=== PATIENT | male | born 1955 | race Two or more races ===

== ENCOUNTER 2018-11-17 08:06 | Day surgery (SDC) | payer MEDICARE, OTHER ==
[2018-11-17] MEDS ORDERED: INSULIN REGULAR, HUMAN 100 UNIT/1 ML 3ML VIAL IVP (10:04)
[2018-11-17] MEDS ORDERED: FENTAnyl 50 MCG/ML VIAL (10:10)
[2018-11-17] MEDS ORDERED: PROPOFOL 20 ML ×2 (10:10→11:03)
[2018-11-17] MEDS ORDERED: ONDANSETRON 4 MG INJ IV (10:30)
== END 2018-11-17 11:28 | disposition home or self-care (01) ==
LOC: GIL 08:06
DX: R19.4 Change in bowel habit (principal); D12.3 Benign neoplasm of transverse colon; K64.8 Other hemorrhoids; E11.9 Type 2 diabetes mellitus without complications
CPT/HCPCS: 45380; 82962; 88305